=== PATIENT | male | born 1955 | race Caucasian/White ===

== ENCOUNTER → 2018-08-16 | Outpatient (CLI) | payer MEDICARE, SELFPAY ==
--- NOTE | 2018-08-16 09:45 | PET_ITS ---
EXAMINATION: FDG PET CT INDICATIONS: A 63-year-old male with reported history of pulmonary nodularity. COMPARISON EXAMINATION: CT of the chest report dated 06/09/18. INDEX LESION SIZE SUV INTERPRETATION Left lower anterior lung field, left upper lobe 34.4 mm (frame 200) 1.6 Quantitative criteria for viable neoplasm are not fulfilled, sequential radiologic investigation recommended TECHNIQUE: Following the intravenous administration of 13.99 mCi of F-18 deoxyglucose via the right antecubital fossa, multiplanar image acquisitions of the neck, chest, abdomen and pelvis to level of mid thigh, obtained at one hour post radiopharmaceutical administration contemporaneously interpreted with the current CT of the neck, chest, abdomen and pelvis to level of mid thigh, dated 08/16/[address] of the chest report dated 06/09/18 reveal: SERUM GLUCOSE LEVEL: 102 mg/dl. HEIGHT: 67 inches. WEIGHT: 252 lbs. FINDINGS: 1. A mild linear increase in glucose concentration is defined in the left lower anterior hemithorax pulmonary parenchyma, left upper lobe-lingula generating a calculated maximum standard uptake value of 1.6. The maximal axial diameter of the metabolic, morphologic abnormality on review of CT of the chest dated 08/16/18 is 34.4 mm (AP). 2. Normal physiologic distribution of the radiopharmaceutical is apparent in the hepatic (2.9) and splenic parenchyma, both renal units, bladder and visualized intestinal tract. There is symmetric and preserved glucose metabolism noted in the visualized portion of the frontal, occipital, temporal and parietal lobes of the cerebral cortex, as well as cerebral hemispheres and basal ganglia. Diffuse intestinal tract activity is noted throughout all four quadrants of the abdominal-pelvic retroperitoneum, mesentery consistent with normal physiologic distribution of the radiopharmaceutical. Prominent radiopharmaceutical concentration defined in the right upper hemipelvis appears to represent prominent radiopharmaceutical concentration within the context of the right ureter most consistent with physiologic distribution of the radiopharmaceutical. Pertinent CT findings are as follows. CHEST: There are no additional parenchymal densities-nodules defined in the right-left hemithorax demonstrating discernible, quantitatively significant increased glucose metabolism. Scattered mediastinal and bilateral axillary subcentimeter soft tissue densities, the majority of which express fatty hilus formation are non-glucose avid. Atherosclerotic calcification is defined in the thoracic aorta without evidence of dilatation, aneurysm formation. Coronary arterial calcification is observed. ABDOMEN AND PELVIS: Atherosclerotic calcification is defined in the abdominal aorta without evidence of dilatation, aneurysm formation. Abdominal-pelvic arterial calcification is observed. Calcifications are defined in the bilateral renal units. A periumbilical fat-containing hernia is visualized. Bilateral inguinal soft tissue densities are ametabolic. Colonic diverticulosis is defined. SKELETAL: Degenerative changes defined in the cervical, thoracic and lumbar spine demonstrate no evidence for glucose hypermetabolism. PET/PET/CT Tumor Base -Thigh Init IMPRESSION: 1. NEGATIVE EXAMINATION. There is no definitive quantitative scintigraphic evidence of viable neoplasm. 2. Enhanced FDG concentration defined in the left lower anterior lung field, left upper lobe-lingula does not fulfill quantitative criteria for viable neoplasm. (León et al, Annals of Internal Medicine, 138:724, 2003). 3. Metabolic and/or anatomic stability may be ensured in the left hemithorax pulmonary parenchymal abnormality with repeat FDG PET study and/or CT of the thorax in three months. (Xiu, Journal of Nuclear Medicine 45:88, P2004. Maurisio, Seminars in Thoracic and Cardiovascular Surgery 14:292, 2002). Electronic Signature Malcolm Resendez D.O. Electronically Signed: Malcolm Resendez DO at 23:55 EDT Tel , Service support ,
== END | disposition home or self-care (01) ==
PROVIDERS: Family Provider Internal Medicine Infectious Disease; PCP Internal Medicine Infectious Disease; Visit Provider Internal Medicine Pulmonary Disease
DX: R91.1 Solitary pulmonary nodule (principal)
CPT/HCPCS: 78815; A9552